=== PATIENT | male | born 1985 | race African-American/Black ===

== ENCOUNTER 2019-05-20 20:51 | Emergency (ER) | payer SELFPAY ==
[~2019-05-20] VITALS: Ht 188 cm; Wt 152.0 kg
[2019-05-20 22:10] VITALS: BP 183/120
== END 2019-05-20 23:26 | disposition left against medical advice (07) ==
LOC: ER 20:51
DX: Z53.21 Procedure and treatment not carried out due to patient leaving prior to being seen by health care provider (principal)

== ENCOUNTER 2020-10-13 13:08 | Emergency (ER) | payer OTHER ==
[~2020-10-13] VITALS: Ht 188 cm; Wt 160.0 kg
[2020-10-13] MEDS ORDERED: HYDROCODONE/ACETAMINOPHEN 5/325MG TABLET PO ONE (14:30)
[2020-10-13] MEDS ORDERED: KETOROLAC 30MG/ML VIAL IM ONE (14:30)
[2020-10-13] MEDS ORDERED: LIDOCAINE HCL/PF 1% 10 MG/ML 5ML VIAL IJ ONE (14:30)
[2020-10-13] MEDS ORDERED: T3 PO (15:34)
[2020-10-13] MEDS ORDERED: IBUP-2030 MT (15:34)
[2020-10-13 16:12] VITALS: BP 189/99
== END 2020-10-13 16:14 | disposition home or self-care (01) ==
LOC: ER 13:08
DX: M25.461 Effusion, right knee (principal)
CPT/HCPCS: 93971; 96372; 99284; J1885; Z7610